=== PATIENT | male | born 1965 | race Caucasian/White ===

== ENCOUNTER → 2016-11-14 | Outpatient (CLI) | payer OTHER ==
[~2016-11-14] MED LIST: ACET325T14 PO; SILD25TA PO
[2016-11-14 11:35] LABS: BLOOD UREA NITROGEN 20 mg/dL (7-18)
== END | disposition home or self-care (01) ==
LOC: STAR 10:15
PROVIDERS: ATTEND Neurological Surgery
DX: Z01.818 Encounter for other preprocedural examination (principal); R94.31 Abnormal electrocardiogram [ECG] [EKG]; M50.00 Cervical disc disorder with myelopathy, unspecified cervical region; R79.1 Abnormal coagulation profile; Z87.891 Personal history of nicotine dependence
CPT/HCPCS: 36415; 71020; 80048; 85025; 85610; 85730; 93005

== ENCOUNTER 2016-11-21 07:02 | Inpatient (IN) | payer OTHER ==
[2016-11-14 10:56] VITALS: BP 125/86
[~2016-11-21] VITALS: Ht 180.3 cm; Wt 96.1 kg
[~2016-11-21 07:02] MED LIST changes: +BACITRACIN 50,000 UNIT ONE; +BUPIVACAINE/PF-EPI 0.5% 1:200K ONE; +THROMBIN 20,000 UNIT VIAL TP ONE
[2016-11-21] MEDS ORDERED: LACTATED RINGERS 1,000 ML IV SCH (08:03)
[2016-11-21] MEDS ORDERED: LIDOCAINE 1%, 2ML ONE (08:08)
[2016-11-21] MEDS ORDERED: LIDOCAINE 1%, 2ML SQ PRN (08:30)
[2016-11-21] MEDS ORDERED: REMIFENTANIL 2 MG ONE ×2 (10:34→13:46)
[2016-11-21] MEDS ORDERED: FENTANYL PF 250 MCG/5ML ONE (10:34)
[2016-11-21] MEDS ORDERED: MIDAZOLAM 1 MG/ML, 2ML ONE ×2 (10:34→16:06)
[2016-11-21] MEDS ORDERED: ONDANSETRON 2MG/ML, 2ML IVPush PRN (12:00)
[2016-11-21] MEDS ORDERED: OXYcodone 5 MG/5 ML ORAL.SOL UDC PO PRN (12:00)
[2016-11-21] MEDS ORDERED: HYDROcodone/APAP 7.5-325MG/15ML UDC PO PRN (12:00)
[2016-11-21] MEDS ORDERED: MEPERIDINE/PF 25MG/0.5ML IVPush PRN (12:00)
[2016-11-21] MEDS ORDERED: ACETAMINOPHEN 325 MG TABLET PO PRN (12:00)
[2016-11-21] MEDS ORDERED: PROMETHAZINE 25 MG/ML, 1ML IV PRN (12:00)
[2016-11-21] MEDS ORDERED: EPHEDRINE 50 MG/ML, 1ML IVPush PRN (12:00)
[2016-11-21] MEDS ORDERED: MIDAZOLAM 1 MG/ML, 2ML IV PRN (12:00)
[2016-11-21] MEDS ORDERED: KETOROLAC 30 MG/1 ML ONE (12:21)
[2016-11-21] MEDS ORDERED: PROPOFOL 10 MG/ML, 50ML ONE ×2 (12:21→16:45)
[2016-11-21] MEDS ORDERED: KETAMINE 10 MG/ML, 20ML ONE (12:21)
[2016-11-21] MEDS ORDERED: DEXAMETHASONE 4 MG/ML, 1ML ONE (12:21)
[2016-11-21] MEDS ORDERED: CEFAZOLIN 1,000 MG ONE ×2 (12:21→16:45)
[2016-11-21] MEDS ORDERED: SUCCINYLCHOLINE 20 MG/ML, 10ML ONE ×2 (12:21→16:45)
[2016-11-21] MEDS ORDERED: ONDANSETRON 2MG/ML, 2ML ONE (12:21)
[2016-11-21] MEDS ORDERED: PROPOFOL 10 MG/ML, 20ML ONE (12:21)
[2016-11-21] MEDS ORDERED: FENTANYL PF 100 MCG/2ML ONE ×2 (14:54→16:12)
[2016-11-21] MEDS ORDERED: ACETAMINOPHEN 650 MG/20.3 ML UDC ONE (14:54)
[2016-11-21] MEDS ORDERED: OXYcodone 5 MG/5 ML ORAL.SOL UDC ONE (14:54)
[2016-11-21] MEDS ORDERED: ACETAMINOPHEN 325 MG TABLET ONE (14:54)
[2016-11-21] MEDS: FENTANYL PF 100 MCG/2ML IV PRN ×3 (14:58→16:14)
[2016-11-21] MEDS ORDERED: HYDROmorphone 1 MG/ML, 1ML ONE ×2 (15:30→16:15)
[2016-11-21] MEDS: HYDROmorphone 1 MG/ML, 1ML IV PRN ×3 (15:33→15:44)
[2016-11-21] MEDS ORDERED: hydrALAzine 20 MG/ML, 1ML ONE ×3 (16:16→19:02)
[2016-11-21] MEDS: hydrALAzine 20 MG/ML, 1ML IV PRN ×3 (16:22→19:53)
[2016-11-21] MEDS ORDERED: THROMBIN 20,000 UNIT VIAL TP ONE (16:44)
[2016-11-21] MEDS ORDERED: BACITRACIN 50,000 UNIT ONE (16:44)
[2016-11-21] MEDS ORDERED: BUPIVACAINE/PF-EPI 0.5% 1:200K ONE (16:44)
[2016-11-21] MEDS ORDERED: PHENYLEPHRINE 10 MG/ML ONE (16:45)
[2016-11-21] MEDS ORDERED: HYDROmorphone 2 MG/ML, 1ML ONE (17:34)
[2016-11-21] MEDS: LABETALOL 5MG/ML, 20ML IV PRN ×3 (18:50→19:00)
[2016-11-21] MEDS ORDERED: hydrALAzine 20 MG/ML, 1ML IV PRN (20:00)
[2016-11-21] MEDS ORDERED: ONDANSETRON 2MG/ML, 2ML IV PRN (21:00)
[2016-11-21] MEDS ORDERED: METHOCARBAMOL 1,000 MG in DEXTROSE 5% 100 ML IV ONE (21:00)
[2016-11-21] MEDS ORDERED: HYDROcodone/APAP 5/325 TABLET PO PRN (21:00)
[2016-11-21] MEDS ORDERED: CEFAZOLIN PMX 2GM/50ML 50 ML IVPB SCH (21:00)
[2016-11-21] MEDS ORDERED: MAGNESIUM HYDROXIDE 8%, 30ML UDC PO PRN (21:00)
[2016-11-21] MEDS ORDERED: DIPHENHYDRAMINE 50 MG CAPSULE PO PRN (21:00)
[2016-11-21] MEDS ORDERED: NS + 20MEQ KCL 1,000 ML IV SCH (21:00)
[2016-11-21] MEDS ORDERED: ZOLPIDEM 5MG TABLET PO PRN (21:00)
[2016-11-21] MEDS ORDERED: BISACODYL 10 MG SUPP PR PRN (21:00)
[2016-11-21] MEDS ORDERED: DIPHENHYDRAMINE 50 MG/ML, 1ML IVPush PRN (21:00)
[2016-11-21] MEDS ORDERED: DIPHENHYDRAMINE 50 MG/ML, 1ML IM PRN (21:00)
[2016-11-21] MEDS ORDERED: PROMETHAZINE 25 MG/ML, 1ML IM PRN (21:00)
[2016-11-21] MEDS: ACETAMINOPHEN 325 MG TABLET PO SCH (21:05)
[2016-11-21] MEDS: HYDROcodone/APAP 10/325 MG TABLET PO PRN (21:06)
[2016-11-21] MEDS: CEFAZOLIN PMX 2GM/50ML 50 ML IVPB SCH (21:18)
[2016-11-21] MEDS: DEXAMETHASONE 4 MG/ML, 1ML IV SCH (21:19)
[2016-11-22] MEDS: morphine SULFATE 10 MG/ML, 1ML IV PRN ×2 (00:01→05:53)
[2016-11-22] MEDS: DEXAMETHASONE 4 MG/ML, 1ML IV SCH ×3 (03:35→15:15)
[2016-11-22 04:00] VITALS: BP 145/78
[2016-11-22] MEDS: METHOCARBAMOL 750 MG in DEXTROSE 5% 100 ML IV SCH ×3 (04:50→20:56)
[2016-11-22] MEDS: CEFAZOLIN PMX 2GM/50ML 50 ML IVPB SCH ×2 (04:50→12:40)
[2016-11-22 05:26] LABS: HEMATOCRIT 44.6 % (39.2-51.8); WHITE BLOOD COUNT 14.9 x10^3/uL (3.4-10)
[2016-11-22 05:30] LABS: BLOOD UREA NITROGEN 15 mg/dL (7-18)
[2016-11-22 05:33] LABS: ASPARTATE AMINO TRANSFERASE 27 U/L (15-37)
[2016-11-22] MEDS: SENNA/DOCUSATE TABLET PO SCH (09:02)
[2016-11-22] MEDS: ACETAMINOPHEN 325 MG TABLET PO SCH ×2 (09:03→20:56)
[2016-11-22] MEDS: HYDROcodone/APAP 10/325 MG TABLET PO PRN ×2 (12:39→18:08)
[2016-11-22] MEDS: NS + 20MEQ KCL 1,000 ML IV SCH (14:09)
[2016-11-23] MEDS: morphine SULFATE 10 MG/ML, 1ML IV PRN
[2016-11-23] MEDS: NS + 20MEQ KCL 1,000 ML IV SCH (03:31)
[2016-11-23 04:00] VITALS: BP 120/69
[2016-11-23] MEDS: METHOCARBAMOL 750 MG in DEXTROSE 5% 100 ML IV SCH (05:13)
[2016-11-23] MEDS: HYDROcodone/APAP 10/325 MG TABLET PO PRN (06:23)
[2016-11-23] MEDS: ACETAMINOPHEN 325 MG TABLET PO SCH (08:27)
[2016-11-23] MEDS: SENNA/DOCUSATE TABLET PO SCH (08:28)
[2016-11-23] MEDS ORDERED: METH4TAB2 PO (09:22)
[2016-11-23] MEDS ORDERED: HYDR-3307 PO (09:22)
[2016-11-24] MEDS ORDERED: METHOCARBAMOL 750 MG TABLET PO SCH (05:00)
== END 2016-11-23 10:36 | disposition home or self-care (01) | DRG 471 ==
LOC: ORIP 07:02 → CCU 20:30 → DCLOUNGE 11-23 10:13
PROVIDERS: ADMIT Neurological Surgery
PROC: 0W360ZZ Control Bleeding in Neck, Open Approach (ICD-10-PCS; 2016-11-21)
PROC: 0RR30JZ Replacement of Cervical Vertebral Disc with Synthetic Substitute, Open Approach (ICD-10-PCS; 2016-11-21)
PROC: 0RB30ZZ Excision of Cervical Vertebral Disc, Open Approach (ICD-10-PCS; 2016-11-21)
PROC: 0RP30JZ Removal of Synthetic Substitute from Cervical Vertebral Disc, Open Approach (ICD-10-PCS; 2016-11-21)
PROC: 01N10ZZ Release Cervical Nerve, Open Approach (ICD-10-PCS; 2016-11-21)
PROC: 4A1104G Monitoring of Peripheral Nervous Electrical Activity, Intraoperative, Open Approach (ICD-10-PCS; 2016-11-21)
PROC: 00CT0ZZ Extirpation of Matter from Spinal Meninges, Open Approach (ICD-10-PCS; 2016-11-21)
PROC: 0RG20A0 Fusion of 2 or more Cervical Vertebral Joints with Interbody Fusion Device, Anterior Approach, Anterior Column, Open Approach (ICD-10-PCS; principal; 2016-11-21 10:00)
DX: M48.02 Spinal stenosis, cervical region (principal); G82.50 Quadriplegia, unspecified; M50.022 Cervical disc disorder at C5-C6 level with myelopathy; M47.12 Other spondylosis with myelopathy, cervical region; E11.9 Type 2 diabetes mellitus without complications; F17.290 Nicotine dependence, other tobacco product, uncomplicated; I11.9 Hypertensive heart disease without heart failure; M50.222 Other cervical disc displacement at C5-C6 level; X58.XXXA Exposure to other specified factors, initial encounter; I25.2 Old myocardial infarction; Y93.89 Activity, other specified; Y92.89 Other specified places as the place of occurrence of the external cause; Y99.8 Other external cause status; M25.78 Osteophyte, vertebrae; I10 Essential (primary) hypertension
CPT/HCPCS: 36415; 72040; 80053; 81001; 85025; 87081; 93005; 93306; C1713; J0690; J1100; J1170; J1885; J2250; J2405; J2704; J3010; J3480; J3490; C1778; J0330; J0360; J2270; J2370; J2800; J7050; J7120

== ENCOUNTER → 2017-06-26 | Outpatient (CLI) | payer OTHER ==
[~2017-06-26] MED LIST changes: -BACITRACIN 50,000 UNIT ONE; -BUPIVACAINE/PF-EPI 0.5% 1:200K ONE; +HYDR-3307 PO; +METH4TAB2 PO; -THROMBIN 20,000 UNIT VIAL TP ONE
== END ==
LOC: RAD 10:51
PROVIDERS: ATTEND Neurological Surgery
DX: M50.023 Cervical disc disorder at C6-C7 level with myelopathy (principal)
CPT/HCPCS: 72050